=== PATIENT | female | born 1945 | race Caucasian/White ===

== ENCOUNTER 2023-03-25 08:57 | Day surgery (SDC) | payer OTHER ==
[~2023-03-25] VITALS: Ht 154.9 cm; Wt 89.8 kg
[~2023-03-25 08:57] MED LIST: CEFAZOLIN SOD 2 GM in D5W 50 ML IV ONE
[2023-03-25 13:43] VITALS: O2SAT 96
[2023-03-25] MEDS ORDERED: NS IRRIG SOLN 1000 ML IR ONE (14:08)
[2023-03-25] MEDS ORDERED: MIDAZOLAM HCL 2 MG/2 ML VIAL (VERSED) ONE (14:08)
[2023-03-25] MEDS ORDERED: ONDANSETRON HCL 4 MG/2 ML VIAL ONE (14:08)
[2023-03-25] MEDS ORDERED: PROPOFOL 200MG/ 20ML VIAL (DIPRIVAN) IV ONE (14:08)
[2023-03-25] MEDS ORDERED: HEPARIN SODIUM,PORCINE 10,000 UNIT/ML VIAL ONE (14:08)
[2023-03-25] MEDS ORDERED: BUPIVACAINE /PF 0.25% 30 ML VIAL INJ ONE (14:08)
[2023-03-25] MEDS ORDERED: SEVOFLURANE 15 MIN GAS INH ONE (14:08)
[2023-03-25] MEDS ORDERED: LR 1,000 ML IV.SOLN IV ONE (14:08)
[2023-03-25] MEDS ORDERED: fentaNYL CITRATE/PF 100 MCG/2 ML AMP ONE (14:08)
[2023-03-25] MEDS ORDERED: LIDOCAINE 2%, 20 ML MDV ONE (14:08)
[2023-03-25] MEDS ORDERED: HYDROmorphone 1 MG/ML INJ. CARTRIDGE IVP PRN ×2 (15:00)
[2023-03-25] MEDS ORDERED: hydrALAZINE HCL 20 MG/ML VIAL IVP PRN (15:00)
[2023-03-25] MEDS ORDERED: MEPERIDINE HCL/PF 25 MG/ML DISP.SYRIN IVP PRN (15:00)
[2023-03-25] MEDS ORDERED: LABETALOL 100 MG/ 20ML VIAL IVP PRN (15:00)
[2023-03-25] MEDS ORDERED: METOCLOPRAMIDE HCL 10 MG/2 ML VIAL IVP PRN (15:00)
[2023-03-25] MEDS ORDERED: LR 1,000 ML IV SCH (15:00)
[2023-03-25] MEDS ORDERED: HYDROcodone/ACETAMIN 5-325 MG TAB (NORCO/ VICODIN) PO PRN (15:30)
[2023-03-25] MEDS ORDERED: D5/0.45 NS 1,000 ML IV SCH (16:00)
[2023-03-25 18:18] VITALS: BP_SYST 130; PULSE 60; RESP 18
== END 2023-03-25 18:15 | disposition home or self-care (01) ==
LOC: SDS 08:57 → SMU 08:59 → SDS 18:15
PROVIDERS: ATTEND Colon & Rectal Surgery
DX: C50.911 Malignant neoplasm of unspecified site of right female breast (principal); C50.912 Malignant neoplasm of unspecified site of left female breast; I10 Essential (primary) hypertension; G62.9 Polyneuropathy, unspecified; E78.5 Hyperlipidemia, unspecified; E11.40 Type 2 diabetes mellitus with diabetic neuropathy, unspecified; E03.9 Hypothyroidism, unspecified; E66.9 Obesity, unspecified; Z79.899 Other long term (current) drug therapy; Z68.35 Body mass index [BMI] 35.0-35.9, adult
CPT/HCPCS: 87081; 36571; 82962; 71045; 77001; J3490; J0690; J1644; J2001; J3465; J2405; J2704; J3010; J7060; J7120; C1788; 76000